=== PATIENT | female | born 2000 | race Caucasian/White ===

== ENCOUNTER → 2018-04-27 | Outpatient (CLI) | payer OTHER ==
--- NOTE | 2018-04-27 10:19 | EKG ---
[place] [facility] [place] ANGELINA STANFORD : [id number] MR: [id number] V: [id number] EXAM DATE: ORDERING PHYSICIAN: KATHY RICHARDSON TECHNOLOGIST: CARMEL Test Reason : R79.9 Blood Pressure : / mmHG Vent. Rate : 069 BPM Atrial Rate : 069 BPM P-R Int : 162 ms QRS Dur : 100 ms QT Int : 428 ms P-R-T Axes : 032 083 050 degrees QTc Int : 458 ms Normal sinus rhythm Normal ECG No previous ECGs available Confirmed by SANDRA VAZ ([id number]) on 04/27/2018 1:54:29 PM Referred By: DYLAN Confirmed By:SANDRA VAZ
== END ==
LOC: RESP 10:02
PROVIDERS: ATTEND Physician Assistant
DX: R79.9 Abnormal finding of blood chemistry, unspecified (principal)
CPT/HCPCS: 93005

== ENCOUNTER → 2018-05-24 | Outpatient (CLI) | payer OTHER ==
--- NOTE | 2018-05-24 15:51 | RADIOLOGY IMAGING REPORT ---
FACILITY: [facility] PATIENT NAME: Christi Payan : 2000 MR: [id number] V: [id number] EXAM DATE: ORDERING PHYSICIAN: KATHY RICHARDSON TECHNOLOGIST: Location: [facility] Patient: Christi Payan : 2000 Visit/Account:[id number] Date of Sevice: 05/24/2018 EXAMINATION: CT Head without intravenous contrast HISTORY: Chronic headache and dizziness. TECHNIQUE: Axial images were obtained from the skull base to the vertex without intravenous contrast . Sagittal and coronal reformatted images are also submitted. One of the following dose optimization techniques was utilized in the performance of this exam: Autom ated exposure control; adjustment of the mA and/or kV according to the patient's size; or use of an i terative reconstruction technique. Specific details can be referenced in the facility's radiology C T exam operational policy. COMPARISON: None available. FINDINGS: Brain volume: Normal. Ventricles: Negative. Acute ischemic changes: None. Hemorrhage: None. Masses / edema: None. Jaramillo-white: Negative. White matter: Negative. Vessels: Negative. Extra-axial: Negative. Calvarium / skull base: Negative. Visualized sinuses / orbits: Negative. IMPRESSION: Normal noncontrast head CT. Report Dictated By: Donn Ramirez MD at 05/24/2018 3:43 PM Report E-Signed By: Donn Ramirez MD at 05/24/2018 3:47 PM WSN:[id number]
== END ==
LOC: CT 14:52
PROVIDERS: ATTEND Physician Assistant
DX: R51 Headache (principal); R42 Dizziness and giddiness
CPT/HCPCS: 70450